=== PATIENT | male | born 1970 | race Caucasian/White ===

== ENCOUNTER 2021-05-27 08:54 | Emergency (ER) | payer OTHER ==
[2021-05-27 10:03] LABS: BASOPHIL 0.3 % (0-2); EOSINOPHIL 0 % (0-5); HCT 44.7 % (42.0-52.0); HGB 15.3 g/dl (13.2-18.0); MCH 31.7 pg (25.0-31.0); MCHC 34.2 g/dL (32.0-36.0); MCV 92.7 fL (78.0-100.0); MONOCYTE 5.2 % (0-12); MPV 10.1 fL (6.0-9.5); NEUTROPHIL 76.2 % (41-80); NRBC 0; PLT 95 K/uL (150-400); RBC 4.82 M/uL (4.70-6.00); RDW 12.6 % (11.5-14.0); WBC 3.7 K/uL (4.0-10.5)
[2021-05-27 10:29] LABS: LYMPHOCYTE 17.8 % (15-48)
[2021-05-27 10:31] LABS: ALBUMIN 3.5 g/dL (3.4-5.0); BILIRUBIN - TOTAL 0.5 mg/dL (0.2-1.0); BUN/CREAT RATIO (CALC) 10.8 RATIO; CREATININE 0.93 mg/dL (0.67-1.17); GLOBULIN (CALCULATION) 3.9 g/dL; POTASSIUM 3.7 mmol/L (3.5-5.1); TOTAL PROTEIN 7.4 g/dL (6.4-8.2)
[2021-05-27] MEDS ORDERED: DECADRON6 MG PO (12:09)
== END 2021-05-27 12:30 | disposition home or self-care (01) ==
LOC: FER 08:54
PROVIDERS: Emergency Medicine
DX: U07.1 COVID-19 (principal); J12.82 Pneumonia due to coronavirus disease 2019
CPT/HCPCS: 36415; 36600; 71045; 71275; 80053; 82803; 85025; 85379; 93005; J1100; J7030; Q9967; U0002